=== PATIENT | female | born 1955 | race American Indian/Alaskan Native ===

== ENCOUNTER 2018-11-10 01:47 | Emergency (ER) | payer BC ==
[2018-11-10] MEDS ORDERED: Bupivacaine 0.5% 10 ML SDV INJECT ONE (02:16)
[2018-11-10] MEDS ORDERED: Lidocaine 1% with EPINEPHrine 1:100,000 20 ML MDV INJECT ONE (02:16)
--- NOTE | 2018-11-10 02:20 | EDM.PDOC ---
ED HPI GENERAL MEDICAL PROBLEM - General Chief Complaint: Head Injury Stated Complaint: LACERATION TO FACE Time Seen by Provider: 11/10/18 02:05 Source of Information: Reports: Patient, RN Notes Reviewed History Limitations: Reports: Intoxication - History of Present Illness INITIAL COMMENTS - FREE TEXT/NARRATIVE: The patient states that she was out with her brother, drinking quite a lot - she is unable to say how much - , then states that she fell when in her bathroom , probably around 01:00 this morning. She presents with a laceration to the right side of her face. She states that she is otherwise uninjured. The patient believes that her last tetanus vaccination was probably last year. The patient does not have a PCP. - Related Data Allergies Allergy/AdvReac Type Severity Reaction Status Date / Time codeine Allergy Nausea and Verified 11/10/18 01:57 Vomiting dust Allergy Shortness Uncoded 12/19/13 03:13 CDT of Breath feathers Allergy Shortness Uncoded 12/19/13 03:13 CDT of Breath Home Meds: Home Meds . [No Known Home Meds] 11/10/18 [History] Past Medical History HEENT History: Reports: Allergic Rhinitis Cardiovascular History: Reports: Hypertension (untreated) Respiratory History: Reports: PE (2013) Gastrointestinal History: Reports: Bowel Obstruction, GERD Musculoskeletal History: Reports: Fracture (left foot) Endocrine/Metabolic History: Reports: Obesity/BMI 30+ - Past Surgical History Female Surgical History: Reports: Salpingo-Oophorectomy (left, 12/25/2013) Social & Family History - Tobacco Use Smoking Status *Q: Current Every Day Smoker Years of Tobacco use: 41 Packs/Tins Daily: 0.2 - Caffeine Use Caffeine Use: Reports: Coffee - Alcohol Use Alcohol Use History: Yes Alcohol Use Frequency: Socially (occasionally to excess) - Recreational Drug Use Recreational Drug Use: No - Living Situation & Occupation Living situation: Reports: , Alone Occupation: Employed ([employer]) ED ROS GENERAL - Review of Systems Review Of Systems: ROS reveals no pertinent complaints other than HPI. ED EXAM, SKIN/RASH Exam: See Below Exam Limited By: No Limitations General Appearance: Alert, WD/WN, No Apparent Distress Eye Exam: Bilateral Eye: EOMI, Normal Inspection Ears: Normal External Exam, Normal Canal, Hearing Grossly Normal, Normal TMs Nose: Normal Inspection, Normal Mucosa, No Blood Throat/Mouth: Normal Inspection, Normal Lips, Normal Teeth, Normal Gums, Normal Oropharynx, Normal Voice, No Airway Compromise Head: Normocephalic, Other (2-arm laceration to the right side of the face, involving the right eyebrow, and extending down along the right side of the nose , with the horizontal arm measuring approximately 3.0 cm, and the vertical arm measuring approximately 2.5 cm) Neck: Normal Inspection, Supple, Non-Tender, Full Range of Motion Respiratory/Chest: No Respiratory Distress, Lungs Clear, Normal Breath Sounds, No Accessory Muscle Use Cardiovascular: Normal Peripheral Pulses, Regular Rate, Rhythm, No Gallop, No JVD, No Murmur, No Rub Peripheral Pulses: 4+: Radial (L), Radial (R) GI/Abdominal: Normal Bowel Sounds, Soft, Non-Tender, No Organomegaly, No Distention, No Abnormal Bruit, No Mass, Other (Obese) (Female) Exam: Deferred Rectal (Female) Exam: Deferred Back Exam: Normal Inspection, Full Range of Motion, NT Extremities: Normal Inspection, Normal Range of Motion, No Pedal Edema, Normal Capillary Refill Neurological: CN II-XII Intact, No Motor/Sensory Deficits, Other (Slurred speech , staggering gait, when walked to the bathroom, consistent with alcohol intoxication) Psychiatric: Normal Affect Skin: Warm, Dry, Normal Color, No Rash Lymphatic: No Adenopathy ED SKIN PROCEDURES - Laceration/Wound Repair Right Face Lac/Wound length In cm: 5.5 Appearance: Subcutaneous, Irregular, Clean Distal NVT: Neuro & Vascular Intact, No Tendon Injury Anesthetic Type: Local Local Anesthesia - Lidocaine (Xylocaine): 1% with EPI (50:50 admixture) Local Anesthesia - Bupivicaine (Marcaine): 0.5% Plain (50:50 admixture) Local Anesthetic Volume: 2cc Skin Prep: Providone-Iodine (Betadine) Exploration/Debridement/Repair: Wound Explored, In a Bloodless Field, Explored to Base, No Foreign Material Found, Wound Margins Revised Closed with: Sutures Suture Size: 4-0 # of Sutures: 9 Suture Type: Nylon (Ethilon), Interrupted, Simple Sterile Dressing Applied: None Tetanus Status Addressed: Yes Complications: No Course - Vital Signs Last Recorded V/S: Last Vital Signs Temp 36.6 C 03/02/19 01:52 Pulse 81 11/10/18 01:52 Resp 19 11/10/18 01:52 BP 150/78 H 11/10/18 01:52 Pulse Ox 97 11/10/18 01:52 - Orders/Labs/Meds Meds: Medications Discontinued Medications Generic Name Dose Route Start Last Admin Trade Name Roxy PRN Reason Stop Dose Admin Bupivacaine HCl 10 ml 11/10/18 02:16 11/10/18 02:25 Sensorcaine-Mpf 0.5% INJECT 11/10/18 02:17 10 ml ONETIME ONE Administration Lidocaine/Epinephrine 20 ml 11/10/18 02:16 11/10/18 02:25 Xylocaine 1% With Epinephrine 1:100,000 INJECT 11/10/18 02:17 20 ml ONETIME ONE Administration - Re-Assessments/Exams Free Text/Narrative Re-Assessment/Exam: 11/10/18 03:01 After a sterile field was prepared, the wound was anesthetized with a 50:50 admixture of lidocaine 1% with epinephrine and bupivacaine 0.5% without epinephrine, to good anesthetic effect. The wound edges were then approximated with 9 simple interrupted sutures, using 4-0 Ethilon. The patient tolerated the procedure well. Departure - Departure Time of Disposition: 03:02 Disposition: Home, Self-Care 01 Condition: Fair Clinical Impression: Fall at home, Facial laceration, Alcohol intoxication - Discharge Information *PRESCRIPTION DRUG MONITORING PROGRAM REVIEWED*: Not Applicable *COPY OF PRESCRIPTION DRUG MONITORING REPORT IN PATIENT NINO: Not Applicable Referrals: PCP,None [Primary Care Provider] - Forms: ED Department Discharge Additional Instructions: You were seen in the emergency room after drinking excessively, falling at home , and lacerating your face. Your wound was closed with 9 sutures. Take [id number] Tylenol or ibuprofen as needed for discomfort. Keep the wound clean with ordinary soap and water when you bathe. You do not need to apply an antibiotic ointment. The sutures should be ready for removal by 11/20/2018. The sutures can be removed at the walk-in clinic, by a nurse in your doctor's office, or in the ER. Do not attempt to remove the sutures yourself. After your wound has completely healed, we recommend that you apply a sunblock to the area for 6 months, even in the winter, to help minimize the appearance of a scar. If you keep the wound clean, it should not get infected, however, if there are any concerns of an infection, such as undue pain, swelling, redness, or drainage , please return to the ER for reevaluation.
== END 2018-11-10 03:11 | disposition home or self-care (01) ==
LOC: JD.ED 01:47
DX: S01.81XA Laceration without foreign body of other part of head, initial encounter (principal); F10.929 Alcohol use, unspecified with intoxication, unspecified; F17.210 Nicotine dependence, cigarettes, uncomplicated; I10 Essential (primary) hypertension; Z88.5 Allergy status to narcotic agent; Z91.048 Other nonmedicinal substance allergy status; W18.30XA Fall on same level, unspecified, initial encounter; Y92.002 Bathroom of unspecified non-institutional (private) residence as the place of occurrence of the external cause
CPT/HCPCS: 12014; 99282; J3490; 12013; 99283

== ENCOUNTER 2023-08-25 15:53 | Emergency (ER) | payer BC ==
[2023-08-25 17:05] LABS: BASOPHILS PERCENT AUTO 0.4 % (0.0-1.0); EOSINOPHILS ABSOLUTE AUTO 0.1 K/mm3 (0.0-0.4); EOSINOPHILS PERCENT AUTO 1.9 % (0.0-6.0); HEMATOCRIT 40.3 % (37.0-47.0); HEMOGLOBIN 13.6 gm/dl (12.0-16.0); IMMATURE GRAN ABSOLUTE AUTO 0.01 K/mm3 (0.00-0.05); IMMATURE GRAN PERCENT AUTO 0.1 % (0.0-0.4); LYMPHOCYTES ABSOLUTE AUTO 3.1 K/mm3 (1.0-4.8); LYMPHOCYTES PERCENT AUTO 43.6 % (24.0-44.0); MEAN CORPUSCULAR HEMOGLOBIN 32.9 pg (28.0-32.0); MEAN CORPUSCULAR HGB CONC 33.7 g/dl (32.0-36.0); MEAN CORPUSCULAR VOLUME 97.3 fl (83.0-99.0); MEAN PLATELET VOLUME 9.5 fl (9.4-12.3); MONOCYTES ABSOLUTE AUTO 0.6 K/mm3 (0.0-0.8); MONOCYTES PERCENT AUTO 7.6 % (0.0-8.0); NEUTROPHILS ABSOLUTE AUTO 3.3 K/mm3 (1.8-7.7); NEUTROPHILS PERCENT AUTO 46.4 % (41.0-71.0); PLATELET COUNT,PLT 252 K/mm3 (150-400); RED BLOOD CELL COUNT 4.14 M/mm3 (4.10-5.30); WHITE BLOOD CELL COUNT,WBC 7.21 K/mm3 (3.9-11.3)
[2023-08-25 17:32] LABS: CORONAVIRUS COVID-19 NAA NEGATIVE (NEGATIVE); INFLUENZA A NAA NEGATIVE (NEGATIVE); RESPIRATORY SYNCYTIAL VIR NAA NEGATIVE (NEGATIVE)
[2023-08-25 17:35] LABS: A/G RATIO 0.9 (1-2); ALBUMIN 3.5 g/dl (3.4-5.0); ANION GAP 13.1 (5-15); BILIRUBIN TOTAL 0.8 mg/dL (0.2-1.0); BUN/CREATININE RATIO 13.8 (14-18); CALCIUM 8.9 mg/dL (8.5-10.1); CREATININE 0.8 mg/dL (0.55-1.02); EST CRCL DRUG DOSING (CG) 70.72 mL/min; MAGNESIUM 1.9 mg/dL (1.8-2.4); POTASSIUM,K 4.1 mEq/L (3.5-5.1); PROTEIN TOTAL,TP 7.3 g/dl (6.4-8.2)
== END 2023-08-25 18:11 | disposition home or self-care (01) ==
LOC: JD.ED 15:53
DX: R20.2 Paresthesia of skin (principal); I10 Essential (primary) hypertension; E66.9 Obesity, unspecified; Z79.899 Other long term (current) drug therapy; Z91.048 Other nonmedicinal substance allergy status; Z88.5 Allergy status to narcotic agent
CPT/HCPCS: 0241U; 36415; 70450; 80053; 83735; 84484; 85025; 93005; 99284